=== PATIENT | female | born 1990 | race Caucasian/White ===

== ENCOUNTER 2018-02-13 04:30 | Emergency (ER) | payer SELFPAY ==
[~2018-02-13] VITALS: Ht 170.2 cm; Wt 54.4 kg
[2018-02-13] MEDS ORDERED: Isovue-300 100ml vial INJ PRN (05:15)
[2018-02-13] MEDS ORDERED: Morphine Sulfate 4mg/ml Inj (IV USE ONLY) IVP ONE ×3 (05:15→10:15)
[2018-02-13] MEDS ORDERED: Ketorolac 30mg Inj IV ONE ×2 (05:15→08:15)
[2018-02-13 05:19] LABS: BASOPHILS % (AUTO) 0.9 % (0.0-2.0); EOSINOPHILS % (AUTO) 2.8 % (0.0-3.0); HEMATOCRIT 39.6 % (37.0-47.0); HEMOGLOBIN 12.9 G/DL (12.0-16.0); LYMPHOCYTES % (AUTO) 39.1 % (20.0-45.0); MEAN CORPUSCULAR VOLUME 83 FL (80-99); MONOCYTES % (AUTO) 7.9 % (1.0-10.0); NEUTROPHILS % (AUTO) 49.4 % (45.0-75.0); PLATELET COUNT 200 K/UL (150-450); RED BLOOD COUNT 4.75 M/UL (4.20-5.40); RED CELL DISTRIBUTION WIDTH 12.1 % (11.6-14.8); WHITE BLOOD COUNT 6.4 K/UL (4.8-10.8)
[2018-02-13 05:28] LABS: APPEARANCE,URINE CLEAR; BILIRUBIN, URINE NEGATIVE (NEGATIVE); GLUCOSE, URINE (UA) NEGATIVE (NEGATIVE); KETONES,URINE NEGATIVE (NEGATIVE); LEUKOCYTE ESTERASE ,URINE 1+ (NEGATIVE); NITRITE,URINE NEGATIVE (NEGATIVE); PH,URINE 5 (4.5-8.0); PROTEIN,URINE 1+ (NEGATIVE); UROBILINOGEN,URINE NORMAL MG/DL (0.0-1.0)
[2018-02-13 05:31] LABS: ANION GAP 5 mmol/L (5-15); BLOOD UREA NITROGEN 8 mg/dL (7-18); CALCIUM 8.4 MG/DL (8.5-10.1); CARBON DIOXIDE 28 MMOL/L (21-32); CHLORIDE 106 MMOL/L (98-107); CREATININE 0.7 MG/DL (0.55-1.30); POTASSIUM 3.5 MMOL/L (3.5-5.1); SODIUM 139 MMOL/L (136-145)
[2018-02-13 05:35] LABS: ALANINE AMINOTRANSFERASE 18 U/L (12-78); ALBUMIN 3.6 G/DL (3.4-5.0); ALBUMIN/GLOBULIN RATIO 1.2 (1.0-2.7); ALKALINE PHOSPHATASE 57 U/L (46-116); ASPARTATE AMINO TRANSFERASE 13 U/L (15-37); BILIRUBIN,TOTAL 0.3 MG/DL (0.2-1.0)
[2018-02-13 05:38] LABS: COLOR,URINE YELLOW
--- NOTE | 2018-02-13 06:18 | Emergency Room Report ---
History of Present Illness General Chief Complaint: Abdominal Pain Source: Patient Present Illness HPI Is a 27-year-old female with no significant past medical history. She presents with chief complaint of abdominal pain. Pain is acute onset and woke up from her sleep. Localized to the right flank area. Has nausea and vomiting. Radiating to her chest. No diarrhea. Pain is 10 out of 10. Nothing made it better. Nothing made it worse. Never had this problem before. Vomiting is nonbloody and nonbilious. Nothing made it better. Movement made it worse. Allergies: Coded Allergies: No Known Allergies (Unverified , 02/13/18) Patient History Past Medical History: see triage record, old chart reviewed Past Surgical History: other Pertinent Family History: none Social History: Denies: smoking Last Menstrual Period: 02/10/2018 Now: No Immunizations: other Reviewed Nursing Documentation: PMH: Agreed; PSxH: Agreed Nursing Documentation-PMH Past Medical History: No History, Except For Review of Systems Eye: Denies: eye pain, blurred vision ENT: Denies: ear pain, nose congestion, throat swelling Respiratory: Denies: cough, shortness of breath Cardiovascular: Denies: chest pain, palpitations Gastrointestinal: Reports: abdominal pain, nausea, vomiting; Denies: diarrhea Musculoskeletal: Denies: back pain, joint pain Skin: Denies: rash Neurological: Denies: headache, numbness Endocrine: Denies: increased thirst, increased urine Hematologic/Lymphatic: Denies: easy bruising All Other Systems: negative except mentioned in HPI Physical Exam Vital Signs Date Time Temp Pulse Resp B/P (MAP) Pulse Ox O2 Delivery O2 Flow Rate FiO2 02/13/18 04:36 97.8 81 21 145/74 99 Room Air 97.9 vitals normal Sp02 EP Interpretation: reviewed, normal General Appearance: well appearing, no apparent distress, alert Head: normocephalic, atraumatic Eyes: bilateral eye PERRL, bilateral eye EOMI ENT: hearing grossly normal, normal pharynx Neck: full range of motion, supple, no meningismus Respiratory: chest non-tender, lungs clear, normal breath sounds Cardiovascular #1: regular rate, rhythm, no murmur Gastrointestinal: no mass, no organomegaly, no bruit, non-distended, abnormal bowel sounds - increased bowel sounds, tenderness - tenderness to right lower quadrant and flank Musculoskeletal: back normal, gait/station normal, normal range of motion Neurologic: alert, oriented x3 Psychiatric: mood/affect normal Skin: warm/dry Medical Decision Making Diagnostic Impression: Primary Impression: Abdominal pain Qualified Codes: R10.9 - Unspecified abdominal pain Additional Impression: Hemorrhagic cyst of left ovary ER Course Patient presents with abdominal pain. Acute onset. CT scan unremarkable. Ultrasound showed ovarian cyst. No evidence of an acute abdomen. Lab Results Impression labs unremarkable CT/MRI/US Diagnostic Results CT/MRI/US Diagnostic Results #1: Imaging Test Ordered: CT abdomen and pelvis Impression negative per radiologist CT/MRI/US Diagnostic Results #2: Imaging Test Ordered: pelvic ultrasound Impression read by radiologist. Left hemorrhagic ovarian cyst Last Vital Signs Date Time Temp Pulse Resp B/P (MAP) Pulse Ox O2 Delivery O2 Flow Rate FiO2 02/13/18 05:32 97.8 02/13/18 04:36 81 21 145/74 99 Room Air Status: improved Disposition: HOME, SELF-CARE Condition: Stable Scripts Acetaminophen With Codeine (T#3) (TYLENOL #3 TAB*) Y Tab 1 TAB ORAL Q8H PRN for For Pain, #12 TAB Prov: Colten Crowley DO 02/13/18 Ibuprofen* (MOTRIN*) 600 Mg Tablet 600 MG ORAL Q8H PRN for For Pain, #20 TAB 0 Refills Prov: Colten Crowley DO 02/13/18 ABHIJEET BRIONES M.D. Feb 13, 2018 06:18
[2018-02-13] MEDS ORDERED: Morphine Sulfate 4mg/ml Inj (IV USE ONLY) ONE ×2 (06:21→10:08)
--- NOTE | 2018-02-13 06:37 | Diagnostic Imaging Report ---
EXAM: CT Abdomen and Pelvis With Intravenous Contrast. CLINICAL HISTORY: Abdominal pain. TECHNIQUE: Axial computed tomography images of the abdomen and pelvis with intravenous contrast. CTDI is 11.8 mGy and DLP is 557 mGy-cm. One or more of the following dose reduction techniques were used: automated exposure control, adjustment of the mA and/or kV according to patient size, use of iterative reconstruction technique. COMPARISON: No relevant prior studies available. FINDINGS: Lower thorax: No acute findings. ABDOMEN: Liver: Unremarkable. No mass. Gallbladder and bile ducts: Unremarkable. No calcified stones. No ductal dilation. Pancreas: Unremarkable. No ductal dilation. No mass. Spleen: Unremarkable. No splenomegaly. Adrenals: Unremarkable. No mass. Kidneys and ureters: Unremarkable. No hydronephrosis. No solid mass. PELVIS: Bladder: Unremarkable. No mass. Reproductive: Mild free fluid within the pelvis, likely within physiologic limits. No solid adnexal lesions. Appendix: No findings to suggest acute appendicitis. ABDOMEN + PELVIS: Stomach and bowel: Prominent stool within the colon. No definite bowel wall thickening. No small bowel obstruction. Peritoneum: Unremarkable. No significant fluid collection. No free air. Lymph nodes: Unremarkable. No enlarged lymph nodes. Vasculature: Unremarkable. No aortic aneurysm. Bones: No acute fracture. IMPRESSION: No definite acute inflammatory or obstructive process seen within the abdomen or pelvis. Mild free pelvic fluid, likely within physiologic limits. Prominent stool within the colon. Please correlate for history of constipation.
[2018-02-13 08:30] VITALS: BP 108/65
[2018-02-13] MEDS ORDERED: ACETAMINOPHEN-1 EAC1 ORAL (09:48)
[2018-02-13] MEDS ORDERED: IBUPROFEN600 MG ORAL (09:48)
[2018-02-13 10:13] VITALS: BP_SYST 110; BP_DIAS 70; BP_DIAS 72
--- NOTE | 2018-02-14 10:35 | Diagnostic Imaging Report ---
Indication: Abdominal/pelvic pain. Negative test. Technique: Transabdominal and endovaginal pelvic ultrasound was performed. Findings: Imaged portions of the urinary bladder are unremarkable in appearance. The uterus measures 7 x 3.9 x 5.3 cm. Echogenicity is uniform. No myometrial mass identified. The endometrium measures 5 mm in thickness. The right ovary measures 2.9 x 2.5 x 2 cm/7.4 mL. The left ovary measures 3.8 x 2.1 x 2.9 cm/12 mL. A cyst with internal echoes in the left ovary measures 1.7 x 1.8 cm. Color and Doppler flow is noted to the bilateral ovaries. There is mild free fluid in the cul-de-sac. IMPRESSION: 1.8 cm likely hemorrhagic cyst in left ovary. Recommend follow-up exam in 6 weeks to assess for resolution. No evidence to suggest ovarian torsion. Mild simple appearing free fluid noted in the cul-de-sac. Findings correspond with the preliminary report issued to the emergency department by the scanning ultrasound technologist sonographer.
== END 2018-02-13 10:13 | disposition home or self-care (01) ==
LOC: EMR 04:41
DX: R10.9 Unspecified abdominal pain (principal); N83.202 Unspecified ovarian cyst, left side
CPT/HCPCS: 36415; 74177; 76830; 76856; 80053; 80307; 81003; 81025; 83690; 85025; 96361; 96374; 96375; 96376; 99284; J1885; J2270; J2405; Q9967